=== PATIENT | male | born 1995 | race Caucasian/White ===

== ENCOUNTER 2018-08-27 12:24 | Outpatient (CLI) | payer OTHER, BC | END 2018-08-27 12:25 | disposition EMS.NT | LOC: EMS 12:24 | PROVIDERS: ATTEND Surgery | DX: S60.417A Abrasion of left little finger, initial encounter (principal); S60.413A Abrasion of left middle finger, initial encounter; S60.415A Abrasion of left ring finger, initial encounter; W18.39XA Other fall on same level, initial encounter; Y35.91XA Legal intervention, means unspecified, law enforcement official injured, initial encounter; Y92.410 Unspecified street and highway as the place of occurrence of the external cause; Y99.0 Civilian activity done for income or pay ==

== ENCOUNTER 2018-08-27 13:16 | Emergency (ER) | payer OTHER, BC ==
[2018-08-27 13:36] VITALS: BP 126/80
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
== END 2018-08-27 13:52 | disposition home or self-care (01) ==
LOC: ED 13:16
DX: S60.512A Abrasion of left hand, initial encounter (principal); S60.511A Abrasion of right hand, initial encounter; S60.419A Abrasion of unspecified finger, initial encounter; W22.8XXA Striking against or struck by other objects, initial encounter; Y35.811A Legal intervention involving manhandling, law enforcement official injured, initial encounter; Y92.410 Unspecified street and highway as the place of occurrence of the external cause; Y99.0 Civilian activity done for income or pay
CPT/HCPCS: 1040M; 99282

== ENCOUNTER 2021-09-11 00:21 | Emergency (ER) | payer OTHER, BC ==
[2021-09-11 00:46] VITALS: BP 116/94
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
== END 2021-09-11 00:46 | disposition home or self-care (01) ==
LOC: ED 00:21
DX: Z77.21 Contact with and (suspected) exposure to potentially hazardous body fluids (principal)
CPT/HCPCS: 1040M; 99281

== ENCOUNTER 2023-06-25 08:45 | Outpatient (CLI) | payer BC, OTHER | END 2023-06-25 09:00 | disposition home or self-care (01) | LOC: LAB.N 08:45 | PROVIDERS: ATTEND Family Medicine | DX: L02.212 Cutaneous abscess of back [any part, except buttock and flank] (principal) | CPT/HCPCS: 87070; 87205 ==